=== PATIENT | female | born 1965 | race Caucasian/White ===

== ENCOUNTER 2018-10-23 11:07 | Inpatient (IN) | payer OTHER ==
[2018-10-23] MEDS ORDERED: ASPIRIN 81 MG CHEWABLE TAB ONE (11:27)
[2018-10-23] MEDS ORDERED: ASPIRIN 81 MG CHEWABLE TAB PO ONE (11:29)
--- NOTE | 2018-10-23 11:36 | EDPHY ---
H & P Stated Complaint: sent by for cp x today and week ago right side. Time Seen by Provider: 10/23/18 11:16 HPI/ROS: CHIEF COMPLAINT: Chest pain History by patient HISTORY OF PRESENT ILLNESS: 53-year-old woman with type 2 diabetes and a history of prior WA and stents 13 years ago presents complaining of multiple episodes of burning like chest pain. The 1st episode was a week ago after eating some spicy food and she thought she was having indigestion. She took Pepto-Bismol and seemed to resolve. She has been fine for the last several days until yesterday she had 2 episodes including 1 that woke her from sleep last night, unrelated to eating, and then this morning while at work. It is associated with some nausea but no vomiting, diaphoresis or shortness of breath. It does feel similar to when she has had her prior WA. It is not been exertional. She is on aspirin and her last aspirin was last night. She denies any leg pain or swelling. Burning chest pain is currently resolved, but she still feels a little queasy. Each episode has lasted around 20 or 30 min. She took Pepto-Bismol for 2 of the episodes but nothing today. There is no family history of cardiac disease. Patient quit smoking 13 years ago with her last WA. REVIEW OF SYSTEMS: As in HPI, and all other systems reviewed and are negative Source: Patient - Personal History LMP (Females 10-55): Post Menopausal - Medical/Surgical History Hx Diabetes: Yes Hx Cardiac Disease: Yes Other PMH: gb. umbilical hernia. c section. rotatator cuff repair left shoulder. WA 2004 seen at [facility]. stent. DM. HTN - Social History Smoking Status: Former smoker - Physical Exam Exam: General Appearance: Alert, morbidly obese, comfortable appearing. Head: normocephalic, atraumatic Eyes: Pupils equal and round, reactive to light, no pallor or injection. Extraocular movements intact Mouth: Mucous membranes moist. Respiratory: Normal, effort, lungs are clear to auscultation. No wheezes, rales or rhonchi. No chest wall tenderness Cardiovascular: Regular rate and rhythm. S1, S2, no murmurs, gallops or rubs appreciated Gastrointestinal: Abdomen is soft and nontender, no masses, bowel sounds normal. Back: No CVA tenderness, no bony tenderness Neurological: Awake, alert and oriented x 3, no pronator drift, normal gait, no pronator drift Skin: Warm and dry, no rashes. Musculoskeletal: No deformities or tenderness. Full range of motion Extremities: no edema, no tenderness, DP2+ bilat Psychiatric: Patient has normal affect, there is no agitation. Constitutional: Initial Vital Signs Heart Rate 103 H 10/23/18 11:16 Respiratory Rate 20 10/23/18 11:16 Blood Pressure 151/87 H 10/23/18 11:16 O2 Sat (%) 94 10/23/18 11:16 O2 Delivery Mode Room Air Allergies/Adverse Reactions: No Known Allergies Allergy (Verified 12/20/12 15:05) Home Medications: Medication Instructions Recorded metFORMIN SR [Glucophage XR 500 mg 12/20/12 (*)] Aspirin 81mg (*) 10/23/18 Calcium 10/23/18 Cytomel 10/23/18 Fish Oil 1,000 mg Softgel 10/23/18 Lisinopril 10/23/18 Multivitamin 10/23/18 Synthroid 10/23/18 Vitamin D3 10/23/18 Zantac 10/23/18 Medical Decision Making - Diagnostics EKG Interpretation: Sinus tachycardia rate of 100 with multiple PVCs, and normal axis, normal intervals, and no ST segment abnormalities or evidence of acute ischemia. When compared with prior ECG there is minimal change. Impression: Abnormal EKG. Imaging Results: Imaging Impressions Chest X-Ray 10/23/18 11:29 Impression: Clear lungs. No acute process. ED Course/Re-evaluation: 53-year-old woman with a history of coronary artery disease, diabetes presents with chest pain similar to her prior WA. Chest pain has resolved the patient feels little queasy. She declined any medicine for nausea. She was given aspirin. ECG here shows no acute WA however, her 1st troponin was positive consistent with non ST segment elevation myocardial infarction. Patient remained in normal sinus rhythm with occasional PVCs on the gambling monitor and had no further episodes of chest pain. I discussed case with Dr. Aviles on-call for Cardiology who recommends no heparin at this time but metoprolol given her tachycardia. I discussed the case with Yamilex Viveros, on-call for the hospitalist, who recommends admission to Dr. Archibald. I discussed the plan with the patient and her . Total critical care time was 35 min exclusive of procedures. - Data Points Laboratory Results: 10/23/18 10/23/18 11:38 11:32 POC Sodium 143 mEq/L mEq/L (135-145) POC Potassium 3.0 mEq/L L mEq/L (3.3-5.0) POC Chloride 96.0 mEq/L L mEq/L (97-110) POC Total CO2 26 mEq/L mEq/L (22-31) POC BUN 18 mg/dL mg/dL (7-23) POC Creatinine 0.8 mg/dL mg/dL (0.6-1.0) POC Glucose 149 mg/dL H mg/dL (70-100) POC Calcium 9.9 mg/dL mg/dL (8.5-10.4) POC Troponin I 0.17 ng/mL H ng/mL (0.00-0.08) Medications Given: Potassium Chloride (Klor-Con) 20 meq PO ONCE ONE Stop: 10/23/18 12:43 Last Admin: 10/23/18 12:43 Dose: 20 meq Discontinued Medications Aspirin (Aspirin) 324 mg PO EDNOW ONE Stop: 10/23/18 11:30 Last Admin: 10/23/18 11:30 Dose: 324 mg Metoprolol Succinate (Toprol Xl) 25 mg PO EDNOW ONE Stop: 10/23/18 12:20 Last Admin: 10/23/18 12:22 Dose: 25 mg Metoprolol Tartrate (Lopressor Injection) 5 mg IVP Q5M VIRY Stop: 10/23/18 12:11 Last Admin: 10/23/18 12:26 Dose: Not Given Potassium Chloride (Klor Packets) 20 meq PO EDNOW ONE Stop: 10/23/18 12:40 Last Admin: 10/23/18 12:44 Dose: Not Given Point of Care Test Results: CBC CBC Collection Date 10/23/18 CBC Collection Time 11:26 WBC 10.8 RBC 4.68 HGB 13.9 HCT 41.8 PLT 325 Neut # 7.3 Neut 67.3 LYMPH # 2.7 LYMPH 25.2 Other WBC # 0.8 Other WBC 7.5 MCV 89.3 Chemistry 10/23/18 10/23/18 11:38 11:32 POC Sodium 143 mEq/L mEq/L (135-145) POC Potassium 3.0 mEq/L L mEq/L (3.3-5.0) POC Chloride 96.0 mEq/L L mEq/L (97-110) POC Total CO2 26 mEq/L mEq/L (22-31) POC BUN 18 mg/dL mg/dL (7-23) POC Creatinine 0.8 mg/dL mg/dL (0.6-1.0) POC Glucose 149 mg/dL H mg/dL (70-100) POC Calcium 9.9 mg/dL mg/dL (8.5-10.4) POC Troponin I 0.17 ng/mL H ng/mL (0.00-0.08) Departure - Departure Disposition: [facility] Inpatient Acute Clinical Impression: Non-STEMI (non-ST elevated myocardial infarction)
[2018-10-23] MEDS ORDERED: METOPROLOL SUCCINATE XR 25 MG TAB PO ONE (12:19)
[2018-10-23] MEDS: METOPROLOL TARTRATE 5 MG/5 ML INJ IVP SCH (12:26)
[2018-10-23] MEDS ORDERED: POTASSIUM CL 20 MEQ PKT PO ONE (12:39)
[2018-10-23] MEDS ORDERED: POTASSIUM CL 20 MEQ TAB PO ONE (12:42)
[2018-10-23] MEDS ORDERED: POTASSIUM CL 20 MEQ TAB ONE (12:42)
[2018-10-23] MEDS ORDERED: ONDANSETRON 4 MG/2 ML VIAL IVP PRN (14:41)
[2018-10-23] MEDS ORDERED: ONDANSETRON DISINTEGRATING 4 MG TAB PO PRN (14:41)
[2018-10-23] MEDS ORDERED: NITROGLYCERIN 0.4 MG BTL SL PRN (14:43)
[2018-10-23 15:30] LABS: PLATELET COUNT 323 10^3/uL (150-400)
--- NOTE | 2018-10-23 15:38 | PDGENHP ---
History and Physical - Chief Complaint Chest pain - History of Present Illness Mirna Brown is a 53-year-old F with a PMHx of T2DM, history of CAD with prior CT s/p stents in 2004 who presents to [facility] with chief complaint of multiple episodes of burning like chest pain. She reports that that first episode of chest pain was a week ago after eating [place] food. Chest pain is substernal, sharp in quality, radiates up her neck, sharp and burning in quality. She took Pepto-Bismol which resolved the pain so she thought she was having indigestion. She has continued to experience episodes of chest pain including 1 that woke her from sleep last night, unrelated to eating, and then this morning while at work. It is associated with some nausea but no vomiting, diaphoresis or shortness of breath. She states that episodes last approximately 20 minutes. They were not associated with eating today and did not resolve with Pepto-Bismol today. She reports similar pain to when she has had her prior CT. She does take a daily ASA and her last dose of was yesterday evening. She denies palpitations, edema, orthopnea. Currently, she is chest pain free, but reports some nausea. History Information - Allergies/Home Medication List Allergies/Adverse Reactions: No Known Allergies Allergy (Verified 12/20/12 15:05) Home Medications: metFORMIN SR [Glucophage XR 500 mg (*)] 12/20/12 [Last Taken Unknown] Aspirin 81mg (*) 10/23/18 [Last Taken Unknown] Calcium 10/23/18 [Last Taken Unknown] Cytomel 10/23/18 [Last Taken Unknown] Fish Oil 1,000 mg Softgel 10/23/18 [Last Taken Unknown] Lisinopril 18 [Last Taken Unknown] Multivitamin 10/23/18 [Last Taken Unknown] Synthroid 10/23/18 [Last Taken Unknown] Vitamin D3 10/23/18 [Last Taken Unknown] Zantac 10/23/18 [Last Taken Unknown] I have personally reviewed and updated: family history, medical history, social history, surgical history - Past Medical History coronary artery disease (s/p PCI in 2004) - Social History Smoking Status: Former smoker Review of Systems Review of Systems: ROS: 10pt was reviewed & negative except for what was stated in HPI & below Physical Exam Physical Exam: Temp Pulse Resp BP Pulse Ox 36.3 C 90 18 162/85 H 97 10/23/18 14:49 10/23/18 14:49 10/23/18 14:49 10/23/18 14:49 10/23/18 14:49 O2 (L/minute) 2 Constitutional: no apparent distress Eyes: PERRL Ears, Nose, Mouth, Throat: moist mucous membranes Cardiovascular: regular rate and rhythym Respiratory: no respiratory distress Gastrointestinal: normoactive bowel sounds Skin: warm Musculoskeletal: full muscle strength Neurologic: AAOx3 Psychiatric: interacting appropriately Lab Data & Imaging Review 10/23/18 15:05 10/23/18 15:05 WBC 10.34 10^3/uL (3.80-9.50) H 10/23/18 15:05 RBC 4.54 10^6/uL (4.18-5.33) 10/23/18 15:05 Hgb 12.9 g/dL (12.6-16.3) 10/23/18 15:05 Hct 40.1 % (38.0-47.0) 10/23/18 15:05 MCV 88.3 fL (81.5-99.8) 10/23/18 15:05 MCH 28.4 pg (27.9-34.1) 10/23/18 15:05 MCHC 32.2 g/dL (32.4-36.7) L 10/23/18 15:05 RDW 13.9 % (11.5-15.2) 10/23/18 15:05 Plt Count 323 10^3/uL (150-400) 10/23/18 15:05 MPV 10.2 fL (8.7-11.7) 10/23/18 15:05 Neut % (Auto) 60.5 % (39.3-74.2) 10/23/18 15:05 Lymph % (Auto) 29.2 % (15.0-45.0) 10/23/18 15:05 Hudson % (Auto) 7.2 % (4.5-13.0) 10/23/18 15:05 Eos % (Auto) 1.9 % (0.6-7.6) 10/23/18 15:05 Baso % (Auto) 0.8 % (0.3-1.7) 10/23/18 15:05 Nucleat RBC Rel Count 0.0 % (0.0-0.2) 10/23/18 15:05 Absolute Neuts (auto) 6.26 10^3/uL (1.70-6.50) 10/23/18 15:05 Absolute Lymphs (auto) 3.02 10^3/uL (1.00-3.00) H 10/23/18 15:05 Absolute Monos (auto) 0.74 10^3/uL (0.30-0.80) 10/23/18 15:05 Absolute Eos (auto) 0.20 10^3/uL (0.03-0.40) 10/23/18 15:05 Absolute Basos (auto) 0.08 10^3/uL (0.02-0.10) 10/23/18 15:05 Absolute Nucleated RBC 0.00 10^3/uL (0-0.01) 10/23/18 15:05 Immature Gran % 0.4 % (0.0-1.1) 10/23/18 15:05 Immature Gran # 0.04 10^3/uL (0.00-0.10) 10/23/18 15:05 POC Sodium 143 mEq/L (135-145) 10/23/18 11:38 POC Potassium 3.0 mEq/L (3.3-5.0) L 10/23/18 11:38 POC Chloride 96.0 mEq/L (97-110) L 10/23/18 11:38 POC Total CO2 26 mEq/L (22-31) 10/23/18 11:38 POC BUN 18 mg/dL (7-23) 10/23/18 11:38 POC Creatinine 0.8 mg/dL (0.6-1.0) 10/23/18 11:38 POC Glucose 149 mg/dL (70-100) H 10/23/18 11:38 POC Calcium 9.9 mg/dL (8.5-10.4) 10/23/18 11:38 POC Troponin I 0.17 ng/mL (0.00-0.08) H 10/23/18 11:32 Assessment & Plan Assessment: Non-STEMI (non-ST elevated myocardial infarction) (Acute) - Presents with intermittent episodes of substernal chest pain - Hx of CT s/p PCI x1 in 2004, has been on ASA since - Trop 0.17 on admission, repeat pending - EKG without acute ST-T wave changes on admission - S/p 324 mg ASA on admission, will continue ASA qd - Cardiology consulted, discussed with Dr. Sullivan, plan for [facility] tomorrow, cardiology has ordered Lovenox - TTE ordered per cardiology, CTA also ordered to r/o PE given recent 10 hour car ride - Continue to trend Troponins - Nitro prn for chest pain - NPO at midnight Hx of CAD s/p PCI x1 in 2004 - Management of NSTEMI as above - Continue ASA Hypokalemia - K 3.0 on admission, s/p replacement in ED - Repeat pending - Continue to monitor and treat as needed HTN - Continue home Lisinopril pending med rec Hypothyroidism - Continue home medications pending med rec T2DM - Holding home Metformin - SSI ordered as IP GERD - Continue home Zantac FEN: NPO pending cardiology Code: FULL DVT PPx: SubQ Heparin Dispo: Admit to Observation, pending clinical course
[2018-10-23] MEDS ORDERED: ENOXAPARIN 120 MG/0.8 ML SYR SC ONE (15:52)
[2018-10-23] MEDS ORDERED: TEMAZEPAM 15 MG CAP PO PRN (16:02)
--- NOTE | 2018-10-23 16:13 | PDCARCONS ---
Cardiology Consult Reason for Consult: Chest pain concerning for ischemia. Chief Complaint: Indigestion. Requesting Physician: Dr. Archibald. History of Present Illness: 53-year-old female with premature atherosclerosis. Her cardiac history dates back to 2004 which point she presented with what she describes as a "heart attack." At that time she was treated at [facility]. She states that she had 1 of her coronary arteries stented. She does not recall which 1. She has ongoing risk factors of obesity, sedentary lifestyle, dyslipidemia, hypertension and type 2 diabetes mellitus. Additionally, she has not had her lipids treated over the last several years due to intolerance to statin medications. She states that she was doing well up until yesterday high at about 1:00 p.m.. At that time she was driving back from [place] worried she is spent several days. She had a 20 min episode of which she describes as indigestion. This was a burning sensation in her throat radiating up to her jaws without associated symptoms of nausea, vomiting or diaphoresis. She took a Tums and had prompt relief of her symptoms within 20 min. She had a similar episode about 11:00 a.m. Last night and again early this morning about 9:00 a.m.. All of these lasted for 20 min and were similar to her initial complaints of chest discomfort. As result she went to the [facility]. There she was pain free. Her initial ECG was unremarkable. Initial troponin was slightly elevated at 0.17. I was contacted and advised that she be transferred to this institution for further monitoring and testing. Currently she is pain-free. She notes that at her baseline she does not have significant chest discomfort or breathlessness. She notes no palpitations. She has never had a DVT or PE. As stated above she did just recently returned from an 11 hr trip to [place]. History Information - Allergies/Home Medication List Allergies/Adverse Reactions: No Known Allergies Allergy (Verified 12/20/12 15:05) Home Medications: metFORMIN SR [Glucophage XR 500 mg (*)] 12/20/12 [Last Taken Unknown] Aspirin 81mg (*) 10/23/18 [Last Taken Unknown] Calcium 10/23/18 [Last Taken Unknown] Cytomel 10/23/18 [Last Taken Unknown] Fish Oil 1,000 mg Softgel 10/23/18 [Last Taken Unknown] Lisinopril 10/23/18 [Last Taken Unknown] Multivitamin 10/23/18 [Last Taken Unknown] Synthroid 10/23/18 [Last Taken Unknown] Vitamin D3 10/23/18 [Last Taken Unknown] Zantac 10/23/18 [Last Taken Unknown] I have personally reviewed and updated: family history, medical history, social history, surgical history Past Medical History: Coronary artery disease, obesity, hypertension, type 2 diabetes mellitus, hyperlipidemia, hypothyroidism, GERD. - Surgical History Reports: no pertinent surgical hx - Family History Positive for: non-pertinent - Social History Smoking Status: Former smoker Alcohol Use: None Drug Use: None Additional social history: She is and has 3 children. She does not exercise regularly. Cardiac History - Cardiac History Past Cardiac History: CAD Cardiac Risk Factors: hypertension (>140/90), lipidemia, diabetes mellitus KASIE Risk Evaluation age greater or equal to 65: no greater or equal to 3 CAD risk factors: yes known CAD(stenosis greater or eqaul to 50%): no ASA use in past 7 days: yes severe angina(greater or equal to 2 episodes in 24hrs): yes EKG ST changes greater or equal to 0.5mm: no positive cardiac marker: yes Total Score: 4 KASIE Score: 19.9% risk Physical Exam Physical Exam: Temp Pulse Resp BP Pulse Ox 36.3 C 90 18 162/85 H 97 10/23/18 14:49 10/23/18 14:49 10/23/18 14:49 10/23/18 14:49 10/23/18 14:49 O2 (L/minute) 2 Constitutional: no apparent distress, appears nourished, not in pain Eyes: PERRL, anicteric sclera, EOMI Ears, Nose, Mouth, Throat: moist mucous membranes, hearing normal, ears appear normal, no oral mucosal ulcers Cardiovascular: regular rate and rhythym, no murmur, rub, or gallop, No edema Respiratory: no respiratory distress, no rales or rhonchi, clear to auscultation Gastrointestinal: normoactive bowel sounds, soft, non-tender abdomen, no palpable masses Genitourinary: no bladder fullness, no bladder tenderness Skin: warm, normal color, no rashes or abrasions, no fluctuance, no induration, No mottled Musculoskeletal: full muscle strength, no muscle tenderness, normal joint ROM, no joint effusions Psychiatric: interacting appropriately, not anxious, not encephalopathic, thought process linear Lymph, Heme, Immunologic: no cervical LAD, no supraclavicular LAD Lab and Imaging 10/23/18 15:05 10/23/18 15:05 WBC 10.34 10^3/uL (3.80-9.50) H 10/23/18 15:05 RBC 4.54 10^6/uL (4.18-5.33) 10/23/18 15:05 Hgb 12.9 g/dL (12.6-16.3) 10/23/18 15:05 Hct 40.1 % (38.0-47.0) 10/23/18 15:05 MCV 88.3 fL (81.5-99.8) 10/23/18 15:05 MCH 28.4 pg (27.9-34.1) 10/23/18 15:05 MCHC 32.2 g/dL (32.4-36.7) L 10/23/18 15:05 RDW 13.9 % (11.5-15.2) 10/23/18 15:05 Plt Count 323 10^3/uL (150-400) 10/23/18 15:05 MPV 10.2 fL (8.7-11.7) 10/23/18 15:05 Neut % (Auto) 60.5 % (39.3-74.2) 10/23/18 15:05 Lymph % (Auto) 29.2 % (15.0-45.0) 10/23/18 15:05 Garrett % (Auto) 7.2 % (4.5-13.0) 10/23/18 15:05 Eos % (Auto) 1.9 % (0.6-7.6) 10/23/18 15:05 Baso % (Auto) 0.8 % (0.3-1.7) 10/23/18 15:05 Nucleat RBC Rel Count 0.0 % (0.0-0.2) 10/23/18 15:05 Absolute Neuts (auto) 6.26 10^3/uL (1.70-6.50) 10/23/18 15:05 Absolute Lymphs (auto) 3.02 10^3/uL (1.00-3.00) H 10/23/18 15:05 Absolute Monos (auto) 0.74 10^3/uL (0.30-0.80) 10/23/18 15:05 Absolute Eos (auto) 0.20 10^3/uL (0.03-0.40) 10/23/18 15:05 Absolute Basos (auto) 0.08 10^3/uL (0.02-0.10) 10/23/18 15:05 Absolute Nucleated RBC 0.00 10^3/uL (0-0.01) 10/23/18 15:05 Immature Gran % 0.4 % (0.0-1.1) 10/23/18 15:05 Immature Gran # 0.04 10^3/uL (0.00-0.10) 10/23/18 15:05 POC Sodium 143 mEq/L (135-145) 10/23/18 11:38 Sodium 138 mEq/L (135-145) 10/23/18 15:05 POC Potassium 3.0 mEq/L (3.3-5.0) L 10/23/18 11:38 Potassium 4.2 mEq/L (3.5-5.2) 10/23/18 15:05 POC Chloride 96.0 mEq/L (97-110) L 10/23/18 11:38 Chloride 103 mEq/L (97-110) 10/23/18 15:05 Carbon Dioxide 27 mEq/l (22-31) 10/23/18 15:05 POC Total CO2 26 mEq/L (22-31) 10/23/18 11:38 Anion Gap 8 mEq/L (6-14) 10/23/18 15:05 POC BUN 18 mg/dL (7-23) 10/23/18 11:38 BUN 20 mg/dL (7-23) 10/23/18 15:05 Creatinine 0.8 mg/dL (0.6-1.0) 10/23/18 15:05 POC Creatinine 0.8 mg/dL (0.6-1.0) 10/23/18 11:38 Estimated GFR > 60 10/23/18 15:05 Glucose 96 mg/dL (70-100) 10/23/18 15:05 POC Glucose 149 mg/dL (70-100) H 10/23/18 11:38 POC Calcium 9.9 mg/dL (8.5-10.4) 10/23/18 11:38 Calcium 9.4 mg/dL (8.5-10.4) 10/23/18 15:05 POC Troponin I 0.17 ng/mL (0.00-0.08) H 10/23/18 11:32 Troponin I 0.281 ng/mL (0.000-0.034) H 10/23/18 15:05 Visualized and Interpreted Chest x-ray results: Yes Chest X-ray Interpretation: no infiltrate, normal Visualized and Interpreted imaging results: No Visualized and Interpreted EKG results: Yes EKG Interpretation: Positive for: normal sinsus rhythm, NS ST wave abnormalities A/P Assessment: This is a 53-year-old female with a history of premature atherosclerosis dating back to a period of time when she was 39 years old. At that time it sounds as if she may have had a non STEMI and underwent PCI and stenting at [facility]. She has had suboptimal management of her ongoing cardiac risk factors over the last several years specifically given the fact that she has been intolerant to statin medications. She presents now with 3 episodes of concerning chest pain. Her symptoms are similar to her initial symptoms from 2004. Fortunately, she is pain-free and hemodynamically stable.. Her cardiac bio markers are, however, elevated consistent with a non-STEMI. Certainly pulmonary embolism is on the differential diagnosis in light of her recent travel history. Plan: 1. She will be admitted to telemetry and monitored. 2. I have ordered an echocardiogram. 3. I have started her on beta-blockers, aspirin and have given her a dose of Lovenox. She has had nitroglycerin paste placed. 4. I would like her to have a CT pulmonary angiogram to rule out PE especially in light of her recent travel history. 5. I anticipate that we will proceed with coronary angiography in the morning. 6. I have ordered fasting lipids and a hemoglobin A1c. 7. Further recommendations will be made pending the results of the above testing. Review of Systems Review of Systems: - Review of Systems Constitutional: see HPI EENTM: no symptoms reported Respiratory: see HPI Cardiac: see HPI Gastrointestinal/Abdominal: see HPI Genitourinary: no symptoms Musculoskelatal: no symptoms Skin: no symptoms Neurological: no symptoms Hematologic/Lymphatic: no symptoms reported Immunologic/allergic: no symptoms reported All Other Systems: Reviewed and Negative
--- NOTE | 2018-10-23 16:28 | PDMN ---
Medical Necessity Medical necessity: [facility] M230 [place] - NSTEMI- elevated trop .281, PMH [place] s/p pci in 2004, obesity, sedentary lifestyle, dyslipidemia, htn, DM2, cardiac cath pend.
--- NOTE | 2018-10-23 16:36 | ASMTCMCOM ---
CM Note CM Note Notes: Patient admitted with chest pain and NSTEMI. Plan is to go to medical lab technologist tomorrow. She is normally independent, with children. I do not anticipate any Case Management needs, but we are available if this changes. Date Signed: 10/23/2018 04:36 PM Electronically Signed By:Allie Castro RN
[2018-10-23] MEDS ORDERED: IOPAMIDOL (ISOVUE 370) 100 ML BTL IV ONE (16:44)
[2018-10-23] MEDS: NITROGLYCERIN 2% 1 GM PACKET TP SCH (17:27)
[2018-10-23] MEDS: ACETAMINOPHEN 325 MG TAB PO PRN (17:28)
[2018-10-23] MEDS: METOPROLOL TARTRATE 25 MG TAB PO SCH (21:36)
[2018-10-23] MEDS: HEPARIN 5,000 UNIT/0.5 ML INJ SC SCH (21:37)
[2018-10-24] MEDS: NITROGLYCERIN 2% 1 GM PACKET TP SCH ×4 (00:05→18:12)
[2018-10-24 03:12] LABS: PLATELET COUNT 293 10^3/uL (150-400)
[2018-10-24 03:20] LABS: INR 1.01 (0.83-1.16); PROTIME(PATIENT) 13.5 SEC (12.0-15.0)
[2018-10-24] MEDS ORDERED: NS 1,000 ML IV ONE (06:00)
[2018-10-24] MEDS ORDERED: diphenhydrAMINE 25 MG CAP PO ONE (06:00)
[2018-10-24] MEDS ORDERED: FAMOTIDINE 20 MG TAB PO ONE (06:00)
[2018-10-24] MEDS ORDERED: DIAZEPAM 5 MG TAB PO ONE (06:00)
[2018-10-24] MEDS ORDERED: ASPIRIN EC 325 MG TAB PO ONE (06:00)
[2018-10-24] MEDS: HEPARIN 5,000 UNIT/0.5 ML INJ SC SCH ×3 (07:35→22:16)
[2018-10-24] MEDS: METOPROLOL TARTRATE 25 MG TAB PO SCH ×2 (08:55→21:00)
--- NOTE | 2018-10-24 11:29 | PDHPUP ---
History & Physical Update H&P update statement: This history and physical update is based on an assessment of the patient which was completed after admission or registration (within 24 hours), but prior to the surgery/procedure. H&P update: H&P reviewed & patient examined, no change in patient's condition since H&P completed
--- NOTE | 2018-10-24 11:30 | PDPROPOC ---
Sedation Plan of Care Sedation Plan of Care: vital signs stable, mental status noted, patient educated of risks, benefits, alternatives, patient can tolerate sedation ASA Classification: ASA 1 Planned drugs: fentanyl, midazolam Mallampati Score: Class 1 Mallampati Reference Image: Patient passed 3-3-2 rule?: Yes
[2018-10-24] MEDS ORDERED: LIDOCAINE 1% 300 MG/30 ML SDV ONE (11:42)
[2018-10-24] MEDS ORDERED: MIDAZOLAM 2 MG/2 ML VIAL ONE ×5 (11:43→15:49)
[2018-10-24] MEDS ORDERED: HEPARIN 10,000 UNIT/10 ML MDV (1,000 UNIT/ML) ONE (11:43)
[2018-10-24] MEDS ORDERED: fentaNYL 100 MCG/2 ML INJ ONE ×3 (11:43→15:49)
[2018-10-24] MEDS ORDERED: VERAPAMIL 5 MG/2 ML VIAL ONE (11:43)
[2018-10-24] MEDS ORDERED: IOPAMIDOL (ISOVUE-370) 150 ML BTL IV ONE (11:44)
[2018-10-24] MEDS ORDERED: BIVALIRUDIN 250 MG/5 ML VIAL IV ONE ×2 (12:36→13:20)
--- NOTE | 2018-10-24 13:02 | PDDXCAT ---
Diagnostic Cath Note - . Date: 10/24/18 Fulling Machine Operator: Nate Indication: other (Known CAD, current clinical presentation with a non ST elevation myocardial infarction.) - Procedure Access: left wrist Procedure: left heart catheterization, coronary angiography, left ventriculogram - Materials Left Heart Cath size: 5F Left Heart Cath materials: JL3.5, JR4.0 Right Heart Cath size: 5F - Findings-Left Heart Catheterization LM: Large caliber vessel. Appropriate bifurcation into the LAD and circumflex. Angiographically normal. LAD: Large caliber vessel. Single principal diagonal branch. Luminal irregularities with no obstructive lesions. LCX: Moderate caliber vessel in the proximal segment. Diminutive after a large bifurcating obtuse marginal. Luminal irregularities with no obstructive lesions. RCA: Large caliber dominant vessel. There is a stent visualized in the distal vessel immediately after the crux. In the proximal margin of this stent there appears to be a 90% lesion. KASIE 3 flow is noted. EDP: 20 mmHg. LVEF: 70%. Wall motion: Normal. Complications: None. Estimated blood loss: <50ml Closure method: TR Band Assessment: 1. Known CAD with previous stenting of the right coronary artery. 2. Clinical presentation with a non ST elevation myocardial infarction. 3. Evidence of what appears to be in stent restenoses at the proximal margin of a previously placed stent in the right coronary artery. 4. Hyperdynamic left ventricular systolic function. Plan: She will be referred to Interventional Cardiology for PCI/stenting of the right coronary artery. Patient Problems: Problems Problem Status Onset Non-STEMI (non-ST elevated myocardial infarction) Acute
[2018-10-24] MEDS ORDERED: NITROGLYCERIN 1,500 MCG/15 ML VIAL MISC ONE (13:26)
[2018-10-24] MEDS ORDERED: CLOPIDOGREL BISULFATE 75 MG TAB ONE (13:32)
[2018-10-24] MEDS ORDERED: CLOPIDOGREL BISULFATE 75 MG TAB PO ONE (13:46)
[2018-10-24] MEDS ORDERED: ATROPINE SULFATE 1 MG/10 ML SYR IVP PRN (13:46)
--- NOTE | 2018-10-24 13:48 | ECHO ---
[email or web address] [address] [address] Main: [phone] Fax: Transthoracic Echocardiogram Name: LISA ZARATE MR#: [id number] Study Date: 10/24/2018 Study Time: 11:09 AM Date of : 1965 Age: 53 year(s) Height: 157.5 cm (62 in.) Weight: 122.47 kg (270 lb.) BSA: 2.17 m2 Gender: Female Examination: Echo Indication: Chest Pain Image Quality: Contrast: Requested by: Abrahan Archibald BP: / Heart Rate: Rhythm: Indication: Chest Pain Procedure Staff Test And Research Reactor Operator: Kym Ashby [facility] Reading Physician: Hansel Sullivan MD Requesting Provider: Conclusions: Normal size left ventricle. Normal global systolic LV function. EF is 60 %. No regional wall motion abnormality. Normal diastolic LV function. Mild mitral valve regurgitation is present. Mild tricuspid regurgitation is present. Right ventricular systolic pressure measures 24mmHg. The pulmonary artery pressure is normal. Measurements: Chambers Valvular Assessment AV/MV Valvular Assessment TV/PV Normal Normal Normal Name Value Range Name Value Range Name Value Range IVSd (2D): 0.9 cm (0.6 cm-1.1 AV Vmax: 1.18 m/s (1 m/s-1.7 TR Vmax: 2.16 mm/s ( - ) cm) m/s) TR PGmax: 19 mmHg ( - ) LVDd (2D): 4.6 cm (3.9 cm-5.3 AV maxP mmHg ( - ) syst. PAP: 24 mmHg ( - ) cm) LVOT Vmax: 1.02 m/s (0.7 m/s-1.1 PV Vmax: 0.80 m/s (0.6 m/s-0.9 LVDs (2D): 2.7 cm (2.1 cm-4 m/s) m/s) cm) LEE (Vmax): 2.5 cm2 ( - ) PV PGmax: 3 mmHg ( - ) LVPWd (2D): 0.7 cm ( - ) MV E Vmax: 0.99 m/s ( - ) LVOTd 1.9 cm 1.9 cm mm MV A Vmax: 0.75 m/s ( - ) LVEF (BP): 60 % (>=55 %) MV E/A: 1.32 ( - ) RVDd(2D): 3.6 cm (1.9 cm-3.8 cmmm) Continued Measurements: Chambers Valvular Assessment AV/MV Valvular Assessment TV/PV Patient: LISA ZARATE Study Date: 10/24/2018 Page 1 of 2 11:09 AM Name Value Name Value Name Value LADs: 3.3 cm MV DecTime: 144 m/s CVP (est.): 5 mmHg LADs Lon.9 cm MV E' Septal: 0.09 m/s LA Area: 16.1 cm2 MV E/E' Septal: 10.40 LA Volume: 46 ml MV E/E' Lateral: 9.70 LA Volume Index: 21.2 ml/m2 TAPSE: 2.7 cm RA Area: 15.2 cm2 Additional Vessels Name Value Ao Ascendin.8 cm Findings: Left Ventricle: Normal size left ventricle. No LV hypertrophy. Normal global systolic LV function. EF is 60 %. No regional wall motion abnormality. Normal diastolic LV function. Right Ventricle: Normal size right ventricle. Normal RV function. Left Atrium: The left atrium is normal in size. Right Atrium: The right atrium is normal in size. Mitral Valve: The mitral valve is normal in appearance and function. Mild mitral valve regurgitation is present. No mitral stenosis is present. Aortic Valve: Aortic valve is not well visualized. There is no aortic valve regurgitation. No aortic valve stenosis is present. Tricuspid Valve: The tricuspid valve is normal in appearance and function. Mild tricuspid regurgitation is present. Right ventricular systolic pressure measures 24mmHg. The pulmonary artery pressure is normal. Pulmonic Valve: Pulmonary valve not well visualized. There is no pulmonic regurgitation seen. Aorta: Normal size aortic root measuring 2.7 cm. Normal size ascending aorta measuring 2.8 cm. IVC: Normal size and course of the IVC. Pericardium: No pericardial effusion. There is pericardial fat. (No Signature Object) Patient: LISA ZARATE Study Date: 10/24/2018 Page 2 of 2 11:09 AM [id number]
[2018-10-24] MEDS ORDERED: fentaNYL 100 MCG/2 ML INJ IVP PRN (15:54)
[2018-10-24] MEDS ORDERED: MIDAZOLAM 2 MG/2 ML VIAL IVP PRN (15:55)
--- NOTE | 2018-10-24 17:21 | HOSPPROG ---
Hospitalist Progress Note Assessment/Plan: DIAGNOSES: * non STEMI in patient with previous stenting * the assist restenoses of previous right coronary stent, with new stent placed across the old stent today, uncomplicated * diabetes type 2, metformin held for angiography * hypokalemia receiving replacement * hypertension on lisinopril * hypercholesterolemia not controlled * hypothyroidism PLANS: * Further monitoring overnight here after her angiography and stent placement today * Will need aggressive outpatient secondary prevention measures in follow-up * Recheck potassium and replace as needed * Continue off metformin 2 more days after today's angiogram and stent SUBJECTIVE: After her invasive procedures today she is feeling well with no pain at the access site at her groin, no distal symptoms to suggest a embolization No recurrent anginal or heart failure symptoms OBJECTIVE Vitals reviewed: Stable without fever Grain Elevator Operator, my review: Sinus Exam: alert oriented skin warm dry color ok resps not labored lungs clear BSs heart regular abd soft nondistended nontender, bowel sounds present Groin access site looks good limbs warm, no edema, good color and warmth distally with palpable pulses foot iv site ok Lab data: Highest troponin 0.32 Potassium better at 3.9 LDL cholesterol in the 180s Objective: Vital Signs Temp Pulse Resp BP Pulse Ox 36.4 C 81 16 137/101 H 93 10/24/18 04:00 10/24/18 08:55 10/24/18 08:00 10/24/18 08:55 10/24/18 08:00 Laboratory Results 10/24/18 03:05 10/24/18 03:05 10/23/18 10/24/18 10/25/18 06:59 06:59 06:59 Intake Total 1150 600 Balance 1150 600 PT 13.5 SEC (12.0-15.0) 10/24/18 03:05 INR 1.01 (0.83-1.16) 10/24/18 03:05 ICD10 Worksheet Patient Problems: Problems Problem Status Onset Non-STEMI (non-ST elevated myocardial infarction) Acute
[2018-10-24] MEDS ORDERED: LISINOPRIL/HCTZ 10/12.5 MG 1 EA TAB PO SCH (18:00)
[2018-10-24] MEDS ORDERED: MULTIVITAMINS 1 EACH TAB PO SCH (18:00)
[2018-10-24] MEDS ORDERED: CALCIUM CARB W/VIT D 500 MG TAB PO SCH (18:00)
[2018-10-24] MEDS: FAMOTIDINE 20 MG TAB PO SCH (21:00)
[2018-10-24] MEDS: CHOLECALCIFEROL VIT D3 2,000 UNITS TAB/CAP PO SCH (21:00)
[2018-10-24] MEDS: ACETAMINOPHEN 325 MG TAB PO PRN (21:07)
[2018-10-25] MEDS: NITROGLYCERIN 2% 1 GM PACKET TP SCH ×2 (00:40→06:10)
--- NOTE | 2018-10-25 01:05 | CPIP ---
DATE OF PROCEDURE: 10/24/2018 PROCEDURE: 1. Coronary angiography. 2. Stenting of right coronary artery with Synergy drug-eluting stent. INDICATIONS: 1. Known coronary artery disease. 2. Acute coronary syndrome. ACCESS AND CORONARY ANGIOGRAPHY: Access and coronary angiography were performed by Dr. Hansel Sullivan. Coronary angiography was notable for single-vessel disease involving the right coronary artery. Anselmo pritchett had a 99% stenosis in the mid right coronary artery at the takeoff of the right posterolateral system as well as the posterior descending coronary artery. This represented in-stent restenosis. PERCUTANEOUS CORONARY INTERVENTION OF THE RIGHT CORONARY ARTERY: A 7-Irish JR4 side-hole catheter w as advanced to the right coronary artery and images obtained. Angiography confirmed the presence of high-grade disease involving the mid to distal right coronary artery. A Luge wire was placed in the posterior descending coronary artery, and a Prowater J was placed in the right posterior lateral jackson nary artery. A 2.5 x 10 cutting balloon was used to pre-dilate the lesion extending into the right p osterolateral system. An attempt was made at trying to pass a 2.5 x 10 cutting balloon into the post erior descending coronary artery. However, this was unsuccessful. A 2.0 x 15 Emerge balloon was suc cessfully placed in the posterior descending coronary artery and deployed. Followup angiography demo nstrated no significant residual stenosis and KASIE-3 flow. A 2.75 Synergy drug-eluting stent was sherif nickolas in the mid to distal right coronary artery extending into the posterior lateral system. The Luge wire was withdrawn, and the stent was deployed. Followup angiography demonstrated significant steno sis involving the ostium of the posterior descending coronary artery. A Luge wire was then placed in the posterior descending coronary artery, and a 2.0 x 15 balloon was used to pre-dilate the lesion. Followup angiography demonstrated residual stenosis. A 2.0 x 15 was placed in the posterior descend ing coronary artery. A 2.5 x 15 was placed in the right posterior lateral coronary artery and the ba lloon simultaneously inflated via kissing technique. Followup angiography demonstrated KASIE-3 flow i n those blood vessels and no significant residual stenosis. COMPLICATIONS: None. CONCLUSIONS: 1. Single-vessel coronary artery disease. 2. Status post successful percutaneous coronary intervention in the right coronary artery. /[id number]/MODL
[2018-10-25 04:42] LABS: PLATELET COUNT 311 10^3/uL (150-400)
[2018-10-25] MEDS ORDERED: LEVOTHYROXINE 150 MCG TAB PO SCH (06:00)
[2018-10-25] MEDS: HEPARIN 5,000 UNIT/0.5 ML INJ SC SCH (06:09)
[2018-10-25] MEDS: METOPROLOL TARTRATE 25 MG TAB PO SCH (08:58)
[2018-10-25] MEDS: FAMOTIDINE 20 MG TAB PO SCH (08:58)
[2018-10-25] MEDS: CHOLECALCIFEROL VIT D3 2,000 UNITS TAB/CAP PO SCH (08:59)
[2018-10-25] MEDS ORDERED: LIOTHYRONINE SODIUM 5 MCG TAB PO SCH (09:00)
[2018-10-25] MEDS ORDERED: ASPIRIN EC 325 MG TAB PO SCH (09:00)
[2018-10-25] MEDS ORDERED: Dapagliflozin Propanediol [Farxiga] 10 MG PO SCH (09:00)
[2018-10-25] MEDS ORDERED: CLOPIDOGREL BISULFATE 75 MG TAB PO SCH (09:00)
[2018-10-25] MEDS ORDERED: ATORVASTATIN CALCIUM 40 MG TAB PO SCH (09:30)
[2018-10-25] MEDS ORDERED: ATORVASTATIN CALCIUM 20 MG TAB PO SCH (11:00)
[2018-10-25 11:01] VITALS: BP 127/83
--- NOTE | 2018-10-25 13:56 | CPEKG ---
Test Reason : OPEN Blood Pressure : / mmHG Vent. Rate : 084 BPM Atrial Rate : 083 BPM P-R Int : 157 ms QRS Dur : 068 ms QT Int : 378 ms P-R-T Axes : 063 013 027 degrees QTc Int : 447 ms Sinus rhythm Confirmed by Rashid Bender ([id number]) on 10/25/2018 1:55:30 PM Referred By: Confirmed By:Rashid Bender
--- NOTE | 2018-10-25 13:59 | CPEKG ---
Test Reason : OPEN Blood Pressure : / mmHG Vent. Rate : 079 BPM Atrial Rate : 079 BPM P-R Int : 162 ms QRS Dur : 076 ms QT Int : 379 ms P-R-T Axes : 072 012 027 degrees QTc Int : 435 ms Sinus rhythm Ventricular bigeminy Septal Q waves Confirmed by Rashid Bender ([id number]) on 10/25/2018 1:58:48 PM Referred By: Confirmed By:Rashid Bender
--- NOTE | 2018-10-25 14:05 | CPEKG ---
Test Reason : OPEN Blood Pressure : / mmHG Vent. Rate : 102 BPM Atrial Rate : 103 BPM P-R Int : 154 ms QRS Dur : 068 ms QT Int : 329 ms P-R-T Axes : 055 -02 001 degrees QTc Int : 429 ms Sinus tachycardia Anteroseptal Q waves Confirmed by Rashid Bender ([id number]) on 10/25/2018 2:05:27 PM Referred By: Confirmed By:Rashid Bender
--- NOTE | 2018-10-25 14:42 | PDDCSUM ---
Discharge Summary Discharge Summary: Date of Admission: 10/23/2018 Date of Discharge: 10/25/2018 Consults: Cardiology Procedures: LHC, s/p RCA stent Followup: Cardiology, PCP DIAGNOSES: * non STEMI in patient with previous stenting * In stent restenosis of previous right coronary stent, with new stent placed across the old stent on 10/24 * diabetes type 2, metformin held for angiography * hypokalemia receiving replacement * hypertension on lisinopril * hypercholesterolemia not controlled * hypothyroidism PLANS: * Will need aggressive outpatient secondary prevention measures in follow-up, continue ASA, started on Atorvastatin, patient reports hx of statin intolerance , agreed to start 20 mg Atorvastatin with plan to uptitrate to high intensity * Continue off metformin 2 more days after today's angiogram and stent Time spent on discharge was >35 minutes with >50% of time spent on patient education and counseling.
== END 2018-10-25 13:11 | disposition home or self-care (01) | DRG 247 ==
LOC: CED 11:07 → CEDHOLD 12:23 → OBSVTOIN 14:23 → F2W 14:38
PROVIDERS: ADMIT Internal Medicine; ATTEND Internal Medicine
PROC: B2151ZZ Fluoroscopy of Left Heart using Low Osmolar Contrast (ICD-10-PCS; principal; 2018-10-24)
PROC: 027034Z Dilation of Coronary Artery, One Artery with Drug-eluting Intraluminal Device, Percutaneous Approach (ICD-10-PCS; principal; 2018-10-24)
PROC: 4A023N7 Measurement of Cardiac Sampling and Pressure, Left Heart, Percutaneous Approach (ICD-10-PCS; principal; 2018-10-24)
PROC: B2111ZZ Fluoroscopy of Multiple Coronary Arteries using Low Osmolar Contrast (ICD-10-PCS; principal; 2018-10-24)
DX: I21.4 Non-ST elevation (NSTEMI) myocardial infarction (principal); I25.10 Atherosclerotic heart disease of native coronary artery without angina pectoris; T82.857A Stenosis of other cardiac prosthetic devices, implants and grafts, initial encounter; E87.6 Hypokalemia; E11.9 Type 2 diabetes mellitus without complications; E78.5 Hyperlipidemia, unspecified; E66.9 Obesity, unspecified; Z87.891 Personal history of nicotine dependence; I25.2 Old myocardial infarction; Z95.5 Presence of coronary angioplasty implant and graft; Z68.42 Body mass index [BMI] 45.0-49.9, adult
CPT/HCPCS: 71046-PO; 80048-PO; 84484-ER; C1725; C1769; C1874; C1887; C9600; J0583; J1644; J1650; J2250; J2270; J2405; J3010; Q9967